=== PATIENT | female | born 1975 | race Caucasian/White ===

== ENCOUNTER 2020-08-17 15:06 | Emergency (ER) | payer BC ==
[2020-08-17 15:22] VITALS: BP 126/69; PULSE 98
[2020-08-17] MEDS ORDERED: Tetracaine HCl/PF 0.5% 4 ML Bottle EYEBOTH ONE (15:36)
--- NOTE | 2020-08-17 15:55 | EDM.PDOC ---
ED HPI GENERAL MEDICAL PROBLEM - General Chief Complaint: ENT Problem Stated Complaint: RIGHT EAR PAIN, HEADACHE,SWOLLEN Time Seen by Provider: 08/17/20 15:30 Source of Information: Reports: Patient, RN History Limitations: Reports: No Limitations - History of Present Illness INITIAL COMMENTS - FREE TEXT/NARRATIVE: Patient is a 45-year-old female who presents to ER with complaint of right ear pain. Patient was seen in the clinic yesterday and started on amoxicillin as well as Ciprodex drops for the right ear infection. Patient states she has continually been having swelling, increased pain, redness to the right ear. Patient rates the pain an 8-9 on 10. States she did not sleep throughout the night last night. Reports pain traveling to the anterior ear as well as pos terior ear. Painful to pull the ear up, painful to press on the tragus. Onset: Gradual Right Ear Pain Score (Numeric/FACES): 8 - Related Data Allergies Allergy/AdvReac Type Severity Reaction Status Date / Time No Known Allergies Allergy Verified 08/17/20 15:19 Home Meds: Home Meds Lisinopril/Hydrochlorothiazide [Lisinopril-Hctz 10-12.5 mg Tab] 1 tab PO DAILY 12/22/15 [History] Vit 90/Iron Fum/Folic [ Formula] 1 each PO DAILY 04/28/16 [History] Past Medical History HEENT History: Reports: None Cardiovascular History: Reports: Hypertension Respiratory History: Reports: None Gastrointestinal History: Reports: None Genitourinary History: Reports: None [employer] History: Reports: None Musculoskeletal History: Reports: None Neurological History: Reports: None Psychiatric History: Reports: None Endocrine/Metabolic History: Reports: None Hematologic History: Reports: None Immunologic History: Reports: None Oncologic (Cancer) History: Reports: None Dermatologic History: Reports: None - Infectious Disease History Infectious Disease History: Reports: Chicken Pox - Past Surgical History Head Surgeries/Procedures: Reports: None HEENT Surgical History: Reports: Adenoidectomy, Tonsillectomy GI Surgical History: Reports: Appendectomy Female Surgical History: Reports: Tubal Ligation Other Female Surgeries/Procedures: and reversal of tubal ligation Musculoskeletal Surgical History: Reports: Other (See Below) Other Musculoskeletal Surgeries/Procedures:: right knee surgery Social & Family History - Tobacco Use Tobacco Use Status *Q: Never Tobacco User - Caffeine Use Caffeine Use: Reports: Coffee - Alcohol Use Days Per Week of Alcohol Use: 3 Number of Drinks Per Day: 3 Total Drinks Per Week: 9 - Recreational Drug Use Recreational Drug Use: No ED ROS ENT - Review of Systems Review Of Systems: Comprehensive ROS is negative, except as noted in HPI. ED EXAM, ENT - Physical Exam Exam: See Below Exam Limited By: No Limitations General Appearance: Alert, WD/WN, Moderate Distress Eye Exam: Bilateral Eye: EOMI, Normal Inspection Ears: Mastoid Swelling, Mastoid Tenderness, Canal Swelling, TM Dullness, TM Erythema, TM Fluid. No: Canal Discharge, Canal Foreign Body, Canal Material, TM Perforation Nose: Normal Inspection, Normal Mucousa, No Blood Mouth/Throat: Normal Inspection, Normal Gums, Normal Lips, Normal Oropharynx, Normal Teeth Head: Atraumatic, Normocephalic Neck: Normal Inspection, Supple, Non-Tender, Full Range of Motion Respiratory/Chest: No Respiratory Distress, Lungs Clear, Normal Breath Sounds, No Accessory Muscle Use, Chest Non-Tender Cardiovascular: Normal Peripheral Pulses, Regular Rate, Rhythm, No Edema, No Gallop, No JVD, No Murmur, No Rub GI/Abdominal: Normal Bowel Sounds, Soft, Non-Tender (Female) Exam: Deferred Rectal (Female) Exam: Deferred Back: Normal Inspection, Full Range of Motion Extremities: Normal Inspection, Normal Range of Motion, Non-Tender, No Pedal Ashok ma, Normal Capillary Refill Neurological: Alert, Oriented, Normal Gait, No Motor/Sensory Deficits Psychiatric: Normal Affect, Normal Mood, Anxious Skin: Warm, Dry, Intact, Normal Color, No Rash Lymphatic: No Adenopathy Course - Vital Signs Last Recorded V/S: Last Vital Signs Temp 97.9 F 08/17/20 15:19 Pulse 98 08/17/20 15:19 Resp 18 08/17/20 15:19 BP 126/69 08/17/20 15:19 Pulse Ox 100 08/17/20 15:19 - Orders/Labs/Meds Orders: Active Orders 24 hr Category Date Time Status C-REACTIVE PROTEIN [CHEM] Stat Lab 08/17/20 15:35 Ordered CBC WITH AUTO DIFF [HEME] Stat Lab 08/17/20 15:35 Ordered COMPREHENSIVE METABOLIC PN,CMP [CHEM] Stat Lab 08/17/20 15:35 Ordered SEDIMENTATION RATE MANUAL [HEME] Stat Lab 08/17/20 15:36 Ordered Meds: Medications Discontinued Medications Generic Name Dose Route Start Last Admin Trade Name Michelle PRN Reason Stop Dose Admin Tetracaine HCl 1 ml 08/17/20 15:36 08/17/20 15:43 Tetracaine Hcl/Pf 0.5% 4 Ml Bottle EYEBOTH 08/17/20 15:37 1 ml ASDIRECTED ONE Administration - Re-Assessments/Exams Free Text/Narrative Re-Assessment/Exam: 08/17/20 15:55 Patient refuses to have lab work performed and refuses to have CT completed at this time. Patient states she is deathly afraid of needles. Risks explained to the patient such as possible abscess, mastoiditis, things that would be more easily visualized on CT. Patient states if continues to worsen, she will make an appointment at the clinic tomorrow. Patient requests to take ear pain drops home with her. Ophthalmic tetracaine was used 2 drops in the right ear for pain. Patient will be instructed to use this 2 drops every 4-6 hours as needed for pain. Patient is highly encouraged to follow-up in the clinic or return to ER tomorrow if any worsening. Patient also encouraged to continue using her Ciprodex eardrops as well as taking her amoxicillin orally. Departure - Departure Time of Disposition: 15:57 Disposition: Home, Self-Care 01 Condition: Fair Clinical Impression: Otitis externa Qualifiers: Otitis externa type: unspecified type Chronicity: acute Laterality: right Qualified Code(s): H60.501 - Unspecified acute noninfective otitis externa, right ear - Discharge Information *PRESCRIPTION DRUG MONITORING PROGRAM REVIEWED*: No *COPY OF PRESCRIPTION DRUG MONITORING REPORT IN PATIENT JAYDEN: No Instructions: Otitis Externa, [id number] Forms: ED Department Discharge Additional Instructions: Continue taking amoxicillin and Ciprodex eardrops as directed Tetracaine drops to the ear, 1 to 2 drops every 4-6 hours as needed for pain Follow-up in the clinic or return to the ER with any worsening of problems May use Tylenol and/or ibuprofen as directed for pain Sepsis Event Note (ED) - Evaluation Sepsis Screening Result: No Definite Risk - Focused Exam Vital Signs: Vital Signs Temp Pulse Resp BP Pulse Ox 08/17/20 15:19 97.9 F 98 18 126/69 100 - My Orders Last 24 Hours: My Active Orders 08/17/20 15:35 C-REACTIVE PROTEIN [CHEM] Stat CBC WITH AUTO DIFF [HEME] Stat COMPREHENSIVE METABOLIC PN,CMP [CHEM] Stat 08/17/20 15:36 SEDIMENTATION RATE MANUAL [HEME] Stat - Assessment/Plan Last 24 Hours: My Active Orders 08/17/20 15:35 C-REACTIVE PROTEIN [CHEM] Stat CBC WITH AUTO DIFF [HEME] Stat COMPREHENSIVE METABOLIC PN,CMP [CHEM] Stat 08/17/20 15:36 SEDIMENTATION RATE MANUAL [HEME] Stat
== END 2020-08-17 16:02 | disposition home or self-care (01) ==
LOC: DL.ED 15:06
DX: H60.501 Unspecified acute noninfective otitis externa, right ear (principal); I10 Essential (primary) hypertension; Z79.899 Other long term (current) drug therapy
CPT/HCPCS: 99283

== ENCOUNTER 2022-09-12 12:42 | Emergency (ER) | payer BC ==
[2022-09-12 12:54] VITALS: BP 129/80; PULSE 93
== END 2022-09-12 13:04 | disposition home or self-care (01) ==
LOC: DL.ED 12:42
DX: S61.252A Open bite of right middle finger without damage to nail, initial encounter (principal); I10 Essential (primary) hypertension; Z86.16 Personal history of COVID-19; Z79.899 Other long term (current) drug therapy; W54.0XXA Bitten by dog, initial encounter
CPT/HCPCS: 99282; 99283

== ENCOUNTER 2024-08-31 10:40 | Emergency (ER) | payer BC ==
[2024-08-31 10:52] VITALS: BP 125/78; PULSE 101
[2024-08-31] MEDS: Take Home: Ondansetron 4 MG Tab.DIS, 5 Tab Pack PO ONE (11:09)
[2024-08-31] MEDS: Ketorolac 30 MG/ML SDV IM ONE (11:09)
== END 2024-08-31 11:13 | disposition home or self-care (01) ==
LOC: DL.ED 10:40
DX: R51.9 Headache, unspecified (principal); F07.81 Postconcussional syndrome; I10 Essential (primary) hypertension; Z91.013 Allergy to seafood; Z79.899 Other long term (current) drug therapy; Z86.16 Personal history of COVID-19
CPT/HCPCS: 96372; 99283; 99284; J1885; Q0162

== ENCOUNTER 2024-12-07 10:52 | Emergency (ER) | payer BC ==
[2024-12-07 14:20] VITALS: BP 124/83; PULSE 86
== END 2024-12-07 11:58 | disposition home or self-care (01) ==
LOC: DL.ED 10:52
DX: M62.830 Muscle spasm of back (principal); I10 Essential (primary) hypertension; Z86.16 Personal history of COVID-19; Z90.49 Acquired absence of other specified parts of digestive tract; Z79.899 Other long term (current) drug therapy; Z91.013 Allergy to seafood
CPT/HCPCS: 99282; 99283